=== PATIENT | female | born 1960 | race Hispanic/Latino ===

== ENCOUNTER 2020-09-03 10:11 | Emergency (ER) | payer OTHER ==
[2020-09-03 11:49] LABS: CREATININE 0.7 mg/dL (0.5-1.5)
[2020-09-03] MEDS ORDERED: DEXAMETHASONE SOD PHOSPHATE 4 MG/ML 1ML VIAL ONE (12:02)
[2020-09-03] MEDS ORDERED: KETOROLAC TROMETHAMINE 60 MG/2 ML VIAL ONE (12:03)
[2020-09-03] MEDS ORDERED: ORPHENADRINE CITRATE 30 MG/ML ML ONE (12:03)
[2020-09-03] MEDS ORDERED: LIDOCAINE 5% TOPICAL PATCH TP ONE (12:04)
== END 2020-09-03 14:45 | disposition home or self-care (01) ==
LOC: EDH 10:11
DX: M51.16 Intervertebral disc disorders with radiculopathy, lumbar region (principal); E13.65 Other specified diabetes mellitus with hyperglycemia
CPT/HCPCS: 36415; 80048; 96372 ×3; 99284; J1100; J1885; J2360

== ENCOUNTER → 2020-09-11 | Outpatient (CLI) | payer OTHER | END | disposition home or self-care (01) | LOC: RAH 15:09 | PROVIDERS: ATTEND Family Medicine | DX: M51.16 Intervertebral disc disorders with radiculopathy, lumbar region (principal) | CPT/HCPCS: 72148 ==

== ENCOUNTER 2020-10-03 22:44 | Emergency (ER) | payer OTHER ==
[2020-10-03] MEDS ORDERED: HYDROCODONE/ACETAMINOPHEN 10/325 MG TAB ONE (22:57)
[2020-10-03] MEDS ORDERED: DIAZEPAM 5 MG TABLET ONE (22:57)
== END 2020-10-03 23:45 | disposition home or self-care (01) ==
LOC: EDH 22:44
DX: M54.42 Lumbago with sciatica, left side (principal); E11.9 Type 2 diabetes mellitus without complications

== ENCOUNTER 2022-03-21 01:48 | Emergency (ER) | payer OTHER ==
[~2022-03-21] VITALS: Ht 157.5 cm; Wt 74.4 kg
[2022-03-21] MEDS ORDERED: KETOROLAC 15MG/ML VIAL (15MG/ML) IM ONE (03:30)
[2022-03-21 03:39] VITALS: BP 124/68
== END 2022-03-21 03:50 | disposition home or self-care (01) ==
LOC: EDH 01:48
DX: G89.29 Other chronic pain (principal); M54.9 Dorsalgia, unspecified; M54.2 Cervicalgia; E11.9 Type 2 diabetes mellitus without complications; E78.00 Pure hypercholesterolemia, unspecified; M79.7 Fibromyalgia
CPT/HCPCS: 99283; 96372; J1885

== ENCOUNTER → 2022-06-25 | Outpatient (CLI) | payer OTHER ==
[2022-06-25 12:22] LABS: ALBUMIN 3.6 g/dL (3.5-5.0); CREATININE 0.8 mg/dL (0.5-1.5); POTASSIUM 4.1 mmol/L (3.5-5.1); TOTAL PROTEIN, SERUM 7.9 g/dL (6.0-8.3)
== END | disposition home or self-care (01) ==
LOC: LAB 08:13
PROVIDERS: ATTEND Internal Medicine
DX: I10 Essential (primary) hypertension (principal)
CPT/HCPCS: 36415; 80053

== ENCOUNTER → 2022-06-30 | Outpatient (CLI) | payer OTHER ==
[~2022-06-30] MED LIST: IOHEXOL 350 MG/ML 100ML INFUS..BTL IV ONE
== END | disposition home or self-care (01) ==
LOC: RAH 08:40
PROVIDERS: ATTEND Internal Medicine
DX: M47.815 Spondylosis without myelopathy or radiculopathy, thoracolumbar region (principal); R07.9 Chest pain, unspecified
CPT/HCPCS: 75574; Q9967

== ENCOUNTER → 2023-07-12 | Outpatient (CLI) | payer OTHER | END | disposition home or self-care (01) | LOC: RAH 16:11 | PROVIDERS: ATTEND Internal Medicine | DX: M79.7 Fibromyalgia (principal); M54.50 Low back pain, unspecified | CPT/HCPCS: 72100; 73502 ==